=== PATIENT | female | born 1965 | race Caucasian/White ===

== ENCOUNTER 2016-08-22 11:10 | Emergency (ER) | payer MEDICAID, OTHER ==
--- NOTE | 2016-08-22 11:33 | ER Document Report ---
ED Medical Screen (RME) - General Chief Complaint: Cough Stated Complaint: COUGH Mode of Arrival: Ambulatory Information source: Patient Notes: 51 y/o F presents to ED c/o cough and congestion over the last several weeks. Reports associated intermittent dizziness with coughing bouts. I have greeted and performed a rapid initial assessment of this patient. A comprehensive ED assessment and evaluation of the patient, analysis of test results and completion of the medical decision making process will be conducted by additional ED providers. TRAVEL OUTSIDE OF THE [place] IN LAST 30 DAYS: No - Related Data Allergies/Adverse Reactions: codeine Allergy (Verified 08/22/16 11:29) Past Medical History - Social History Chew tobacco use (# tins/day): No Frequency of alcohol use: None Drug Abuse: None Renal/ Medical History: Denies: Hx Peritoneal Dialysis Physical Exam - Vital signs Vitals: Temp Pulse Resp BP Pulse Ox 97.9 F 98 16 151/85 H 99 08/22/16 11:25 08/22/16 11:25 08/22/16 11:25 08/22/16 11:25 08/22/16 11:25 - General General appearance: Appears well, Alert In distress: None - Respiratory Respiratory status: No respiratory distress Course - Vital Signs Vital signs: Temp Pulse Resp BP Pulse Ox 97.9 F 98 16 151/85 H 99 08/22/16 11:25 08/22/16 11:25 08/22/16 11:25 08/22/16 11:25 08/22/16 11:25
[2016-08-22 12:37] VITALS: BP 139/78
--- NOTE | 2016-08-22 12:39 | ER Document Report ---
ED General - General Chief Complaint: Cough Stated Complaint: COUGH Mode of Arrival: Ambulatory TRAVEL OUTSIDE OF THE [place] IN LAST 30 DAYS: No - HPI Patient complains to provider of: cough sinus congestion Notes: Patient with cough sinus congestion ongoing for the last 3 weeks. Denies any recent travel denies any recent antibiotics. Patient states [id number] medications are not working anymore. Patient does not smoke. Denies any sick contacts patient denies fevers chills nausea vomiting. States most the pressures maxillary sinuses - Related Data Allergies/Adverse Reactions: codeine Allergy (Verified 08/22/16 11:29) Past Medical History - General Information source: Patient - Social History Smoking Status: Never Smoker Chew tobacco use (# tins/day): No Frequency of alcohol use: None Drug Abuse: None Family History: Reviewed & Not Pertinent Patient has suicidal ideation: No Patient has homicidal ideation: No Renal/ Medical History: Denies: Hx Peritoneal Dialysis Review of Systems - Review of Systems Constitutional: No symptoms reported EENT: Sinus pressure, Sinus discharge Cardiovascular: No symptoms reported Respiratory: Cough Gastrointestinal: No symptoms reported Genitourinary: No symptoms reported Female Genitourinary: No symptoms reported Musculoskeletal: No symptoms reported Skin: No symptoms reported Hematologic/Lymphatic: No symptoms reported Neurological/Psychological: No symptoms reported -: Yes All other systems reviewed and negative Physical Exam - Vital signs Vitals: Temp Pulse Resp BP Pulse Ox 97.9 F 98 16 151/85 H 99 08/22/16 11:25 08/22/16 11:25 08/22/16 11:25 08/22/16 11:25 08/22/16 11:25 Interpretation: Normal - General General appearance: Appears well, Alert - HEENT Head: Normocephalic, Atraumatic Eyes: Normal Conjunctiva: Normal Cornea: Normal Extraocular movements intact: Yes Eyelashes: Normal Pupils: PERRL Anterior chamber: Normal Ears: Normal External canal: Normal Tympanic membrane: Normal Sinus: Normal Nasal: Normal Mouth/Lips: Normal Pharynx: Normal Neck: Normal - Respiratory Respiratory status: No respiratory distress Chest status: Nontender Breath sounds: Normal Chest palpation: Normal - Cardiovascular Rhythm: Regular Heart sounds: Normal auscultation Murmur: No - Abdominal Inspection: Normal Distension: No distension Bowel sounds: Normal Tenderness: Nontender Organomegaly: No organomegaly - Back Back: Normal, Nontender - Extremities General upper extremity: Normal inspection, Nontender, Normal color, Normal ROM , Normal temperature General lower extremity: Normal inspection, Nontender, Normal color, Normal ROM , Normal temperature, Normal weight bearing. No: Lizzette's sign - Neurological Neuro grossly intact: Yes Cognition: Normal Orientation: AAOx4 [place]anna Coma Scale Eye Opening: Spontaneous [place] Coma Scale Verbal: Oriented [place] Coma Scale Motor: Obeys Commands [place] Coma Scale Total: 15 Speech: Normal Motor strength normal: LUE, RUE, LLE, RLE Sensory: Normal - Psychological Associated symptoms: Normal affect, Normal mood - Skin Skin Temperature: Warm Skin Moisture: Dry Skin Color: Normal Course - Re-evaluation Re-evalutation: 08/22/16 15:33 Patient symptoms are consistent with sinusitis. Examination reveals no critical etiology. Patient will be treated symptomatically. Patient will be discharged home. - Vital Signs Vital signs: Temp Pulse Resp BP Pulse Ox 98.8 F 89 16 139/78 H 97 08/22/16 12:35 08/22/16 12:35 08/22/16 12:35 08/22/16 12:35 08/22/16 12:35 Discharge - Discharge Clinical Impression: Sinus congestion, Viral URI with cough Condition: Good Disposition: HOME, SELF-CARE Instructions: Upper Respiratory Illness ([facility]) Additional Instructions: Examination today is consistent with sinus congestion you caused by a viral etiology or the weather. We will treat you with her the and steroids. Please take medications as prescribed follow-up with your primary care physician or physicians provided. Return to the ER symptoms worsen. Please make sure to stay well hydrated drink water He may still experience mild dizziness with coughing spells. To help him with his please make sure that you stay well-hydrated drinking plenty water Prescriptions: Desloratadine/Pseudoephedrine [Clarinex-D 12 Hour Tablet] 1 each PO BID #30 tbmp.12hr Prednisone [Deltasone 20 mg Tablet] 2 tab PO DAILY 5 Days
== END 2016-08-22 12:39 | disposition home or self-care (01) ==
LOC: ER 11:10
DX: J06.9 Acute upper respiratory infection, unspecified (principal); B97.89 Other viral agents as the cause of diseases classified elsewhere; R05 Cough; R09.81 Nasal congestion
CPT/HCPCS: 71020; 99283

== ENCOUNTER 2018-11-30 09:21 | Emergency (ER) | payer SELFPAY ==
[2018-11-30] MEDS ORDERED: ASPIRIN 81 MG TABLET, CHEWABLE PO ONE (09:51)
--- NOTE | 2018-11-30 09:52 | ER Document Report ---
ED Medical Screen (RME) - General Chief Complaint: Chest Pain Stated Complaint: SORE THROAT Time Seen by Provider: 11/30/18 09:44 Mode of Arrival: Ambulatory Information source: Patient Notes: Patient presents with a 3-day history of sore throat congestion and voice hoarseness. Patient states that she developed chest discomfort last night that has just been a constant ache. I have greeted and performed a rapid initial assessment of this patient. A comprehensive ED assessment and evaluation of the patient, analysis of test results and completion of the medical decision making process will be conducted by additional ED providers. TRAVEL OUTSIDE OF THE [place] IN LAST 30 DAYS: No - Related Data Allergies/Adverse Reactions: codeine Allergy (Verified 11/30/18 09:24) Past Medical History Renal/ Medical History: Denies: Hx Peritoneal Dialysis Physical Exam - Vital signs Vitals: Temp Pulse Resp BP Pulse Ox 98 F 90 18 148/89 H 97 11/30/18 09:31 11/30/18 09:31 11/30/18 09:31 11/30/18 09:31 11/30/18 09:31 - Respiratory Respiratory status: No respiratory distress Chest status: Tender Breath sounds: Nonproductive cough Chest palpation: No: Tender Course - Vital Signs Vital signs: Temp Pulse Resp BP Pulse Ox 98 F 90 18 148/89 H 97 11/30/18 09:31 11/30/18 09:31 11/30/18 09:31 11/30/18 09:31 11/30/18 09:31
[2018-11-30] MEDS ORDERED: IBUPROFEN 600 MG TABLET PO ONE (10:34)
[2018-11-30] MEDS ORDERED: RINGERS SOLUTION,LACTATED 1,000 ML IV ONE (10:43)
[2018-11-30 11:34] LABS: ABSOLUTE BASOPHILS # (AUTO) 0.1 10^3/uL (0.0-0.2); ABSOLUTE EOSINOPHILS # (AUTO) 0.1 10^3/uL (0.0-0.6); ABSOLUTE LYMPHOCYTES (AUTO) 1.9 10^3/uL (0.5-4.7); ABSOLUTE MONOCYTES (AUTO) 0.6 10^3/uL (0.1-1.4); ABSOLUTE NEUT (AUTO) 8.8 10^3/uL (1.7-8.2); BASOPHILS % (AUTO) 0.5 % (0-2); EOSINOPHILS % (AUTO) 0.9 % (0-6); HEMATOCRIT 45.2 % (36.0-47.0); HEMOGLOBIN 15.2 g/dL (12.0-15.5); LYMPHOCYTES % (AUTO) 16.6 % (13-45); MEAN CORPUSCULAR HEMOGLOBIN 28.1 pg (27.0-33.4); MEAN CORPUSCULAR HGB CONC 33.7 g/dL (32.0-36.0); MEAN CORPUSCULAR VOLUME 83 fl (80-97); MONOCYTES % (AUTO) 5.4 % (3-13); PLATELET COUNT 260 10^3/uL (150-450); RED BLOOD COUNT 5.42 10^6/uL (3.72-5.28); RED CELL DISTRIBUTION WIDTH 13.3 % (11.5-14.0); SEGMENTED NEUTROPHILS % (AUTO) 76.6 % (42-78); TOTAL CELLS COUNTED % (AUTO) 100 %; WHITE BLOOD COUNT 11.5 10^3/uL (4.0-10.5)
[2018-11-30 11:37] LABS: APPEARANCE,URINE CLEAR; BILIRUBIN,URINE NEGATIVE (NEGATIVE); COLOR,URINE YELLOW; GLUCOSE, URINE >=500 mg/dL (NEGATIVE); KETONES,URINE NEGATIVE (NEGATIVE); LEUKOCYTE ESTERASE,URINE NEGATIVE (NEGATIVE); NITRITE,URINE NEGATIVE (NEGATIVE); PROTEIN,URINE NEGATIVE (NEGATIVE); URINE SPECIFIC GRAVITY 1.032; UROBILINOGEN,URINE NEGATIVE mg/dL (<2.0)
--- NOTE | 2018-11-30 11:38 | ER Document Report ---
ED General - General Chief Complaint: Sore Throat Stated Complaint: SORE THROAT Time Seen by Provider: 11/30/18 09:44 Primary Care Provider: JAYNA DOAN MD [ACTIVE STAFF] - Follow up as needed Mode of Arrival: Ambulatory Notes: Patient is a 53-year-old female presents to the emergency department for 3 days of generalized cough, congestion. Patient states she is also losing her voice and feels as though it is very hoarse. Patient is complaining of a generalized sore throat. Patient states the center of her chest does hurt only when she coughs. Patient's denying any chest pain currently or any shortness of breath. Patient is denying any abdominal pain, nausea, vomiting, headache, weakness, dizziness. Patient states she does have a medical history of high blood sugars. States in the past 1 time her sugar will be elevated in the next time it is taking it will be normal. Patient states she was never placed on medications or officially diagnosed with diabetes. Allergies: Codeine Surgical history: Tonsillectomy TRAVEL OUTSIDE OF THE [place] IN LAST 30 DAYS: No - Related Data Allergies/Adverse Reactions: codeine Allergy (Verified 11/30/18 09:24) Past Medical History - General Information source: Patient - Social History Smoking Status: Former Smoker Frequency of alcohol use: None Drug Abuse: None Family History: Reviewed & Not Pertinent Patient has suicidal ideation: No Patient has homicidal ideation: No Endocrine Medical History: Comment Only: Hx Diabetes Mellitus Type 2 - not officially diagnosed Renal/ Medical History: Denies: Hx Peritoneal Dialysis GI Medical History: Reports: Hx Ulcer Past Surgical History: Reports: Hx Section - x2, Hx Tonsillectomy - and adenoids Review of Systems - Review of Systems Constitutional: denies: Fever EENT: See HPI Cardiovascular: See HPI Respiratory: See HPI Gastrointestinal: See HPI Genitourinary: No symptoms reported Female Genitourinary: No symptoms reported Musculoskeletal: No symptoms reported Skin: No symptoms reported Hematologic/Lymphatic: No symptoms reported Neurological/Psychological: No symptoms reported Physical Exam - Vital signs Vitals: Temp Pulse Resp BP Pulse Ox 98 F 90 18 148/89 H 97 11/30/18 09:31 11/30/18 09:31 11/30/18 09:31 11/30/18 09:31 11/30/18 09:31 - Notes Notes: GENERAL: Alert, interacts well. No acute distress. HEAD: Normocephalic, atraumatic. No frontal or maxillary sinus tenderness noted EYES: Pupils equal, round, and reactive to light. Extraocular movements intact. ENT: Oral mucosa moist, tongue midline. Nares patent, TM's intact, nonerythematous, nonbulging bilaterally. Pharynx minorly erythematous, no palat al petechiae noted NECK: Full range of motion. Supple. Trachea midline. No lymphadenopathy appreciated LUNGS: Clear to auscultation bilaterally, no wheezes, rales, or rhonchi. No respiratory distress. HEART: Regular rate and rhythm. No murmur ABDOMEN: Soft, non-tender. Non-distended. Bowel sounds present in all 4 quadrants. EXTREMITIES: Moves all 4 extremities spontaneously. No edema, normal radial and dorsalis pedis pulses bilaterally. No cyanosis. BACK: no cervical, thoracic, lumbar midline tenderness. No saddle anesthesia, normal distal neurovascular exam. NEUROLOGICAL: Alert and oriented x3. Normal speech. cranial nerves II through XII grossly intact. PSYCH: Normal affect, normal mood. SKIN: Warm, dry, normal turgor. No rashes or lesions noted. Course - Re-evaluation Re-evalutation: Patient's labs initially show a blood sugar of 384, it is currently downtrending. Patient's hemoglobin A1c is 8.9. Patient's VBG is within normal limits, no electrolyte abnormalities, patient's anion gap is within normal limits. Patient's labs do show slight leukocytosis of 11.5. No signs of urinary tract infections or ketones in her urine. Patient's rapid strep test was negative. I have given the patient fluid resuscitation in the emergency department As well as a first dose of metformin. I discussed with her that she does currently have diabetes. I have discussed the importance of taking her metformin as prescribed and following up with her primary care provider in the next 24 to 48 hours. Patient voices understanding and is stable for discharge. - Vital Signs Vital signs: Temp Pulse Resp BP Pulse Ox 98 F 90 18 148/89 H 97 11/30/18 09:31 11/30/18 09:31 11/30/18 09:31 11/30/18 09:31 11/30/18 09:31 - Laboratory Result Diagrams: 11/30/18 11:12 11/30/18 11:12 Laboratory results interpreted by me: 11/30/18 11/30/18 11/30/18 10:32 11:12 11:12 WBC 11.5 H RBC 5.42 H Absolute Neutrophils 8.8 H Creatinine 0.39 L Glucose 326 H POC Glucose 384 H Hemoglobin A1c % AST 12 L Alkaline Phosphatase 140 H Urine Glucose (UA) Urine Blood 11/30/18 11/30/18 11:12 11:12 WBC RBC Absolute Neutrophils Creatinine Glucose POC Glucose Hemoglobin A1c % 8.9 H AST Alkaline Phosphatase Urine Glucose (UA) >=500 H Urine Blood LARGE H Discharge - Discharge Clinical Impression: Laryngitis Diabetes Qualifiers: Diabetes mellitus type: type 2 Diabetes mellitus mcfp insulin use: unspecified mcfp insulin use status Diabetes mellitus complication status: with unspecified complications Qualified Code(s): E11.8 - Type 2 diabetes mellitus with unspecified complications Upper respiratory infection Qualifiers: URI type: unspecified viral URI Qualified Code(s): J06.9 - Acute upper respiratory infection, unspecified Condition: Stable Disposition: HOME, SELF-CARE Instructions: Diabetes ([facility]), Laryngitis ([facility]), Sore Throat ([facility]), Upper Respiratory Illness ([facility]) Additional Instructions: You have been seen and treated in the emergency department for an upper respiratory infection. Upper respiratory infections are typically caused by viruses and they do not respond to antibiotics. Laryngitis sometimes response to steroids as it helps with the inflammation but because if sugars are still high I am unable to give you a prescription for steroids. Please make sure you are taking [id number] Tylenol alternated with Motrin and staying well- hydrated. Please also try [id number] Nasonex or Flonase. Your blood sugars are elevated at today's visit. You do have diabetes. Please make sure you take your prescription metformin as prescribed. Please also make sure you follow-up with your primary care provider in the next 24 to 48 hours. Please return to the emergency room for any concerns. Prescriptions: Metformin HCl 500 mg PO BID #60 tablet Referrals: JAYNA DOAN MD [ACTIVE STAFF] - Follow up as needed
[2018-11-30 11:47] LABS: ALANINE AMINOTRANSFERASE 9 U/L (9-52); ALBUMIN 4.4 g/dL (3.5-5.0); ALKALINE PHOSPHATASE 140 U/L (38-126); ANION GAP 13 (5-19); ASPARTATE AMINO TRANSFERASE 12 U/L (14-36); BILIRUBIN,DIRECT 0.3 mg/dL (0.0-0.4); BILIRUBIN,TOTAL 0.6 mg/dL (0.2-1.3); BLOOD UREA NITROGEN 15 mg/dL (7-20); CALCIUM 10.2 mg/dL (8.4-10.2); CARBON DIOXIDE 26 mmol/L (22-30); CHLORIDE 100 mmol/L (98-107); GLUCOSE 326 mg/dL (75-110); POTASSIUM 4.4 mmol/L (3.6-5.0); SODIUM 139.3 mmol/L (137-145); TOTAL PROTEIN 7.8 g/dL (6.3-8.2)
[2018-11-30 12:19] LABS: VENOUS BLOOD BASE EXCESS 1.2 mmol/L; VENOUS BLOOD HCO3 25.9 mmol/L (20-32); VENOUS BLOOD PCO2 41.1 mmHg (35-63); VENOUS BLOOD PH 7.42 (7.30-7.42)
[2018-11-30] MEDS ORDERED: METFORMIN HCL 500 MG TABLET PO ONE (12:58)
[2018-11-30 13:29] VITALS: BP 142/88
== END 2018-11-30 13:32 | disposition home or self-care (01) ==
LOC: ER 09:21
DX: J04.0 Acute laryngitis (principal); J06.9 Acute upper respiratory infection, unspecified; E11.8 Type 2 diabetes mellitus with unspecified complications; Z88.6 Allergy status to analgesic agent; Z79.84 Long term (current) use of oral hypoglycemic drugs
CPT/HCPCS: 99283; 96360; 96361; 36415; 87070; 87880; 82962; 85025; 87077; 80053; 81001; 83036; 82803; J7120

== ENCOUNTER 2019-01-27 10:18 | Emergency (ER) | payer SELFPAY ==
[2019-01-27] MEDS ORDERED: ASPIRIN 81 MG TABLET, CHEWABLE PO ONE (10:51)
--- NOTE | 2019-01-27 10:56 | ER Document Report ---
ED Medical Screen (RME) - General Chief Complaint: Chest Pain Stated Complaint: HEART PALPITATIONS Time Seen by Provider: 01/27/19 10:51 Notes: Patient is a 53-year-old female with diabetes presents to the emergency department with a fluttering feeling in her chest. States this is intermittent for last couple of days. Patient states she was recently diagnosed with diabetes prescribed metformin. States she has not been able to fill her me tformin so she has not been taking any medications. Patient states her chest at this point time feels tight. GENERAL: Alert, interacts well. No acute distress. LUNGS: Clear to auscultation bilaterally, no wheezes, rales, or rhonchi. No respiratory distress. HEART: Regular rate and rhythm. No murmur I have greeted and performed a rapid initial assessment of this patient. A comprehensive ED assessment and evaluation of the patient, analysis of test results and completion of the medical decision making process will be conducted by additional ED providers. I have specifically instructed the patient or family members with the patient to immediately return to any nursing staff should anything change in the patient's condition or with their chief complaint. This medical record was dictated with voice recognizing software. There may be grammatical, syntax errors that are unintended. TRAVEL OUTSIDE OF THE [place] IN LAST 30 DAYS: No - Related Data Allergies/Adverse Reactions: codeine Allergy (Verified 11/30/18 09:24) Past Medical History - Social History Chew tobacco use (# tins/day): No Frequency of alcohol use: Occasional Drug Abuse: None Endocrine Medical History: Reports: Hx Diabetes Mellitus Type 2 - not officially diagnosed NO MEDS Renal/ Medical History: Denies: Hx Peritoneal Dialysis GI Medical History: Reports: Hx Gastroesophageal Reflux Disease, Hx Ulcer Past Surgical History: Reports: Hx Section - x2, Hx Orthopedic Surgery - TUMOR FROM RIGHT ARM, BACK, Hx Tonsillectomy - and adenoids Physical Exam - Vital signs Vitals: Pulse Resp BP Pulse Ox 88 16 138/82 H 93 01/27/19 10:01/27/19 10:01/27/19 10:01/27/19 10:27 Course - Vital Signs Vital signs: Temp Pulse Resp BP Pulse Ox 88 16 138/82 H 93 01/27/19 10:01/27/19 10:01/27/19 10:01/27/19 10:27
[2019-01-27 11:19] LABS: ABSOLUTE BASOPHILS # (AUTO) 0.1 10^3/uL (0.0-0.2); ABSOLUTE EOSINOPHILS # (AUTO) 0.1 10^3/uL (0.0-0.6); ABSOLUTE LYMPHOCYTES (AUTO) 2.3 10^3/uL (0.5-4.7); ABSOLUTE MONOCYTES (AUTO) 0.4 10^3/uL (0.1-1.4); ABSOLUTE NEUT (AUTO) 4.7 10^3/uL (1.7-8.2); BASOPHILS % (AUTO) 0.9 % (0-2); HEMATOCRIT 45.8 % (36.0-47.0); HEMOGLOBIN 15.9 g/dL (12.0-15.5); LYMPHOCYTES % (AUTO) 30.5 % (13-45); MEAN CORPUSCULAR HEMOGLOBIN 28.8 pg (27.0-33.4); MEAN CORPUSCULAR HGB CONC 34.7 g/dL (32.0-36.0); MEAN CORPUSCULAR VOLUME 83 fl (80-97); MONOCYTES % (AUTO) 5.1 % (3-13); PLATELET COUNT 237 10^3/uL (150-450); RED BLOOD COUNT 5.51 10^6/uL (3.72-5.28); RED CELL DISTRIBUTION WIDTH 13.3 % (11.5-14.0); SEGMENTED NEUTROPHILS % (AUTO) 61.5 % (42-78); TOTAL CELLS COUNTED % (AUTO) 100 %; WHITE BLOOD COUNT 7.7 10^3/uL (4.0-10.5)
--- NOTE | 2019-01-27 11:31 | ER Document Report ---
ED General - General Chief Complaint: Chest Pain Stated Complaint: HEART PALPITATIONS Time Seen by Provider: 01/27/19 10:51 TRAVEL OUTSIDE OF THE [place] IN LAST 30 DAYS: No - HPI Notes: Patient is a 53-year-old female who presents emergency department for evaluation of palpitations. She states that they have been ongoing for the last several days. She states that nothing seems to bring them about, nothing seems to make them go away. She denies any associated chest pain, shortness of breath, nausea, diaphoresis, near syncope. She states she has had some intermittent chest tightness, but states that Thursday sensation for her. She actually had some when she presented, but states that she belched and it resolved. She does have a history of acid reflux, and again this is not an abnormal problem for her. She was recently diagnosed with diabetes, after her visit here in the emergency department. She was written a prescription for metformin, which she has not yet filled. She does move to the area, does not yet have a primary care provider. - Related Data Allergies/Adverse Reactions: codeine Allergy (Verified 11/30/18 09:24) Past Medical History - General Information source: Patient - Social History Smoking Status: Never Smoker Chew tobacco use (# tins/day): No Frequency of alcohol use: Occasional Drug Abuse: None Family History: Reviewed & Not Pertinent Patient has suicidal ideation: No Patient has homicidal ideation: No Endocrine Medical History: Reports: Hx Diabetes Mellitus Type 2 - not officially diagnosed NO MEDS Renal/ Medical History: Denies: Hx Peritoneal Dialysis GI Medical History: Reports: Hx Gastroesophageal Reflux Disease, Hx Ulcer Past Surgical History: Reports: Hx Section - x2, Hx Orthopedic Surgery - TUMOR FROM RIGHT ARM, BACK, Hx Tonsillectomy - and adenoids Review of Systems - Review of Systems Constitutional: No symptoms reported EENT: No symptoms reported Cardiovascular: See HPI Respiratory: No symptoms reported Gastrointestinal: No symptoms reported Genitourinary: No symptoms reported Female Genitourinary: No symptoms reported Musculoskeletal: No symptoms reported Skin: No symptoms reported Neurological/Psychological: No symptoms reported Physical Exam - Vital signs Vitals: Pulse Resp BP Pulse Ox 88 16 138/82 H 93 01/27/19 10:27 01/27/19 10:27 01/27/19 10:27 01/27/19 10:27 - Notes Notes: Vital signs reviewed, please refer to chart. Head is normocephalic, atraumatic. Pupils equal round, reactive to light. Neck is supple without meningismus. Heart is regular rate and rhythm. Lungs are clear to auscultation bilaterally. Abdomen is soft, nontender, normoactive bowel sounds throughout. Extremities without cyanosis, clubbing. Posterior calves are nontender. Peripheral pulses are equal. Skin is warm and dry. Patient is awake, alert, neurological exam is nonfocal. Course - Re-evaluation Re-evalutation: 01/27/19 13:23 Patient presents emergency department for evaluation. She is reminded that she needs to start her metformin. The comp occasions of untreated diabetes is explained in great detail. We did discuss dietary and lifestyle changes for better glucose control. She voiced understanding. Patient was placed on a mon itor, laboratory investigations were obtained. Monitor here did not reveal any signs of ectopy. Patient's heart rate stayed in the 70s and 80s throughout the course of her stay. Laboratory investigations showed findings consistent with mild dehydration. She is given IV fluids. No clear etiology of her palpitations was found, and the patient did not really suffer from any while here. We will refer her on to primary care. She is currently awaiting insurance as she just moved from [place]. [facility] She is to follow-up with primary care, perhaps seek out cardiology referral. She is to return to the emergency department with worsening or new concerning symptoms of any sort. - Vital Signs Vital signs: Temp Pulse Resp BP Pulse Ox 88 16 138/82 H 93 01/27/19 10:27 01/27/19 10:27 01/27/19 10:27 01/27/19 10:27 - Laboratory Result Diagrams: 01/27/19 11:00 01/27/19 11:00 Laboratory results interpreted by me: 01/27/19 01/27/19 11:00 11:00 RBC 5.51 H Hgb 15.9 H Creatinine 0.50 L Glucose 344 H Alkaline Phosphatase 128 H - Diagnostic Test Radiology reviewed: Reports reviewed Radiology results interpreted by me: 01/27/19 13:24 Chest X-Ray 01/27/19 10:54 IMPRESSION: NO ACUTE RADIOGRAPHIC FINDING IN THE CHEST. - EKG Interpretation by Me Additional EKG results interpreted by me: 01/27/19 11:31 Sinus mechanism with a rate of 85 bpm. Normal axis and intervals. No acute ST changes concerning for ischemia or infarction. No old studies available for comparison. Discharge - Discharge Clinical Impression: Hyperglycemia, Palpitations Condition: Stable Disposition: HOME, SELF-CARE Instructions: Palpitations (Irregular or Rapid Heartrate) ([facility]), Hyperglycemia ([facility]) Additional Instructions: Rest and stay well-hydrated. You need to start your metformin as directed. Dietary changes and lifestyle adjustments as discussed. Follow-up with primary care next week. You may require referral onto cardiology. Return to the emergency department with worsening or new concerning symptoms of any sort.
--- NOTE | 2019-01-27 11:36 | RADIOLOGY REPORT (SQ) ---
EXAM DESCRIPTION: CHEST SINGLE VIEW COMPLETED DATE/TIME: 01/27/2019 11:15 am REASON FOR STUDY: CP COMPARISON: 08/22/2016. EXAM PARAMETERS: NUMBER OF VIEWS: One view. TECHNIQUE: Single frontal radiographic view of the chest acquired. RADIATION DOSE: NA LIMITATIONS: None. FINDINGS: LUNGS AND PLEURA: No opacities, masses or pneumothorax. No pleural effusion. MEDIASTINUM AND HILAR STRUCTURES: No masses. Contour normal. HEART AND VASCULAR STRUCTURES: Heart normal in size. Normal vasculature. BONES: No acute findings. HARDWARE: None in the chest. OTHER: No other significant finding. IMPRESSION: NO ACUTE RADIOGRAPHIC FINDING IN THE CHEST. TECHNICAL DOCUMENTATION: JOB ID: [id number] [employer]- All Rights Reserved Reading location - IP/workstation name: [email or web address]
[2019-01-27 11:40] LABS: ALANINE AMINOTRANSFERASE 13 U/L (9-52); ALBUMIN 4.8 g/dL (3.5-5.0); ALKALINE PHOSPHATASE 128 U/L (38-126); ANION GAP 11 (5-19); ASPARTATE AMINO TRANSFERASE 15 U/L (14-36); BILIRUBIN,DIRECT 0.3 mg/dL (0.0-0.4); BILIRUBIN,TOTAL 0.5 mg/dL (0.2-1.3); BLOOD UREA NITROGEN 14 mg/dL (7-20); CALCIUM 10.1 mg/dL (8.4-10.2); CARBON DIOXIDE 29 mmol/L (22-30); CHLORIDE 99 mmol/L (98-107); CREATINE KINASE 41 U/L (30-135); GLUCOSE 344 mg/dL (75-110); POTASSIUM 4.3 mmol/L (3.6-5.0); TOTAL PROTEIN 8.2 g/dL (6.3-8.2)
[2019-01-27 11:52] LABS: CREATINE KINASE MB 0.71 ng/mL (<4.55); TROPONIN I < 0.012 ng/mL
[2019-01-27] MEDS ORDERED: NORMAL SALINE 1000 ML 1,000 ML IV ONE (13:00)
[2019-01-27 13:59] VITALS: BP 148/88
--- NOTE | 2019-01-27 20:33 | EKG REPORT ---
SEVERITY:- NORMAL ECG - SINUS RHYTHM : Confirmed by: Tomás Juares 27-Jan-2019 20:31:52
== END 2019-01-27 13:59 | disposition home or self-care (01) ==
LOC: ER 10:18
DX: R73.9 Hyperglycemia, unspecified (principal); R00.2 Palpitations; R07.9 Chest pain, unspecified; Z88.6 Allergy status to analgesic agent
CPT/HCPCS: 93005; 99285; 96360; 36415; 82553; 82550; 83735; 85025; 80053; 84484; 71045; 93010; J7030

== ENCOUNTER 2019-05-24 09:17 | Emergency (ER) | payer SELFPAY ==
[2019-05-24 09:22] VITALS: BP 136/83
--- NOTE | 2019-05-24 09:58 | ER Document Report ---
HPI - HPI Time Seen by Provider: 05/24/19 09:45 Pain Level: 3 Context: Patient is a 54-year-old female who presents emergency department with a chief complaint of difficulty breathing. Patient states that she started with a cough yesterday. Denies any fevers, body aches, chills, or any other symptoms. Patient states that she is possibly prediabetic but has not had confirmation. - CONSTITUTIONAL Constitutional: DENIES: Fever, Chills - NEURO Neurology: DENIES: Headache - CARDIOVASCULAR Cardiovascular: DENIES: Chest pain - RESPIRATORY Respiratory: REPORTS: Trouble Breathing, Coughing - GASTROINTESTINAL Gastrointestinal: DENIES: Abdominal Pain, Nausea, Patient vomiting, Diarrhea - REPRODUCTIVE LMP: Menopausal Reproductive: DENIES: : - MUSCULOSKELETAL Musculoskeletal: DENIES: Extremity pain - DERM Skin Color: Normal Skin Problems: None Past Medical History - Social History Smoking Status: Former Smoker Chew tobacco use (# tins/day): No Frequency of alcohol use: None Drug Abuse: None Family History: Reviewed & Not Pertinent Patient has suicidal ideation: No Patient has homicidal ideation: No Endocrine Medical History: Reports: Hx Diabetes Mellitus Type 2 - not officially diagnosed NO MEDS Renal/ Medical History: Denies: Hx Peritoneal Dialysis GI Medical History: Reports: Hx Gastroesophageal Reflux Disease, Hx Ulcer Past Surgical History: Reports: Hx Section - x2, Hx Orthopedic Surgery - TUMOR FROM RIGHT ARM, BACK, Hx Tonsillectomy - and adenoids Vertical Provider Document - CONSTITUTIONAL Agree With Documented VS: Yes Exam Limitations: No Limitations General Appearance: No Apparent Distress - INFECTION CONTROL TRAVEL OUTSIDE OF THE [place] IN LAST 30 DAYS: No - HEENT HEENT: Atraumatic, Normocephalic, PERRLA - NECK Neck: Normal Inspection, Supple - RESPIRATORY Respiratory: No Respiratory Distress, Other - Decreased expiratory breath sounds in the right lower lobe - CARDIOVASCULAR Cardiovascular: Regular Rate, Regular Rhythm Pulses: Normal: Radial - MUSCULOSKELETAL/EXTREMETIES Musculoskeletal/Extremeties: FROM - NEURO Level of Consciousness: Awake, Alert, Appropriate Motor/Sensory: No Motor Deficit, No Sensory Deficit - DERM Integumentary: Warm, Dry, No Rash Course - Re-evaluation Re-evalutation: 05/24/19 10:31 Patient's chest x-ray per radiologist is negative for any acute findings. No focal consolidation noted. Patient will be sent home with an albuterol inhaler with a spacer. I instructed the patient on how often to use the inhaler. She will also be prescribed guaifenesin. She will follow-up with [facility] or [facility]. She is in agreement with this plan. Follow- up precautions were given. Verbal discharge instructions were given to the patient. They verbalized understanding. They are stable for discharge. - Vital Signs Vital signs: Temp Pulse Resp BP Pulse Ox 98.2 F 96 18 136/83 H 99 05/24/19 09:21 05/24/19 09:21 05/24/19 09:21 05/24/19 09:21 05/24/19 09:21 Discharge - Discharge Clinical Impression: Productive cough Condition: Stable Disposition: HOME, SELF-CARE Additional Instructions: You were seen today in the emergency department for a cough. Your chest x-ray was normal. You are being provided an inhaler. You can take 1 puff every 4-6 hours as needed. You are also being placed on guaifenesin, medication to help break up the mucus. Please follow-up with 1 of the clinics below. If you have worsening shortness of breath, difficulty breathing, or any other symptoms that are worrisome to you, please return to the emergency department. Prescriptions: Guaifenesin [Mucinex] 1,200 mg PO BID #[id number] Forms: Return to Work Referrals: [facility] [Provider Group] - Follow up as needed [facility] [Provider Group] - Follow up as needed
--- NOTE | 2019-05-24 10:17 | RADIOLOGY REPORT (SQ) ---
EXAM DESCRIPTION: CHEST 2 VIEWS COMPLETED DATE/TIME: 05/24/2019 10:05 am REASON FOR STUDY: cough COMPARISON: 01/27/2019 EXAM PARAMETERS: NUMBER OF VIEWS: two views TECHNIQUE: Digital Frontal and Lateral radiographic views of the chest acquired. RADIATION DOSE: NA LIMITATIONS: none FINDINGS: LUNGS AND PLEURA: No opacities, masses or pneumothorax. No pleural effusion. MEDIASTINUM AND HILAR STRUCTURES: No masses or contour abnormalities. HEART AND VASCULAR STRUCTURES: Heart normal size. No evidence for failure. BONES: No acute findings. HARDWARE: None in the chest. OTHER: No other significant finding. IMPRESSION: No focal consolidation or other evidence of acute cardiopulmonary process. TECHNICAL DOCUMENTATION: JOB ID: [id number] [employer]- All Rights Reserved Reading location - IP/workstation name: [email or web address]
[2019-05-24] MEDS ORDERED: ALBUTEROL SULFATE HFA (90 MCG/PUFF) 200 PUFF/8.5 GM MDI IH ONE (10:25)
== END 2019-05-24 10:50 | disposition home or self-care (01) ==
LOC: ER 09:17
DX: R05 Cough (principal); R06.00 Dyspnea, unspecified; Z87.891 Personal history of nicotine dependence
CPT/HCPCS: 71046; J3490; 99284

== ENCOUNTER 2019-08-20 10:19 | Emergency (ER) | payer BC ==
[2019-08-20 10:26] VITALS: BP 139/89
--- NOTE | 2019-08-20 10:31 | ER Document Report ---
ED Medical Screen (RME) - General Chief Complaint: Numbness Stated Complaint: BODY NUMBNESS Time Seen by Provider: 08/20/19 10:25 Mode of Arrival: Ambulatory Information source: Patient Notes: 54-year-old female presents to ED for complaint of numbness to the right side. She states she has full uses her of her arms legs face does not have any drooping but still feels numb. She states it feels just before when he gets the numbness and tingling when you get numbness. She states it feels like it is asleep when she rubs the hand it seems like it is little better but it comes right back. She states she is concerned because she has high sugar and a high A1c and she would like to get this checked her to find what is going on. She does speak in full sentences. Patient is alert oriented respirations regular nonlabored speaking in full sentences and walks with a even steady gait. I have greeted and performed a rapid initial assessment of this patient. A comprehensive ED assessment and evaluation of the patient, analysis of test results and completion of medical decision making process will be conducted by an additional ED providers. TRAVEL OUTSIDE OF THE [place] IN LAST 30 DAYS: No - Related Data Allergies/Adverse Reactions: codeine Allergy (Verified 08/20/19 10:26) Past Medical History - General Information source: Patient - Social History Cigarette use (# per day): No Frequency of alcohol use: None Drug Abuse: None Occupation: Healthcare agent Lives with: Spouse/Significant other Family history: Reviewed & Not Pertinent - Medical History Medical History: Negative - Past Medical History Cardiac Medical History: Reports: None Pulmonary Medical History: Reports: None Neurological Medical History: Reports: None Endocrine Medical History: Reports: Hx Diabetes Mellitus Type 2 Renal/ Medical History: Reports: None Malignancy Medical History: Reports: None GI Medical History: Reports: Hx Gastroesophageal Reflux Disease, Hx Irritable Bowel, Hx Ulcer Musculoskeltal Medical History: Reports Hx Fibromyalgia, Reports Other - Chronic fatigue Skin Medical History: Reports None Psychiatric Medical History: Reports: Hx Depression Traumatic Medical History: Reports: None Infectious Medical History: Reports: None Past Surgical History: Reports: Hx Adenoidectomy, Hx Section - x2, Hx Orthopedic Surgery - TUMOR FROM RIGHT ARM, BACK herniated disc repair, Hx Tonsillectomy - and adenoids - Immunizations Immunizations up to date: Yes Hx Diphtheria, Pertussis, Tetanus Vaccination: No History of Pneumococcal Vaccine: No History of Influenza Vaccine for 04/2019 - 09/2019 Season: No Physical Exam - Vital signs Vitals: Temp Pulse Resp BP Pulse Ox 97.9 F 104 H 18 139/89 H 99 08/20/19 10:22 08/20/19 10:22 08/20/19 10:08/20/19 10:22 08/20/19 10:22 Course - Vital Signs Vital signs: Temp Pulse Resp BP Pulse Ox 97.9 F 104 H 18 139/89 H 99 08/20/19 10:22 08/20/19 10:22 08/20/19 10:22 08/20/19 10:22 08/20/19 10:22
[2019-08-20 11:04] LABS: ABSOLUTE BASOPHILS # (AUTO) 0.1 10^3/uL (0.0-0.2); ABSOLUTE EOSINOPHILS # (AUTO) 0.1 10^3/uL (0.0-0.6); ABSOLUTE LYMPHOCYTES (AUTO) 2.5 10^3/uL (0.5-4.7); ABSOLUTE MONOCYTES (AUTO) 0.4 10^3/uL (0.1-1.4); ABSOLUTE NEUT (AUTO) 5.7 10^3/uL (1.7-8.2); BASOPHILS % (AUTO) 0.9 % (0-2); HEMATOCRIT 42.5 % (36.0-47.0); HEMOGLOBIN 14.9 g/dL (12.0-15.5); LYMPHOCYTES % (AUTO) 28.1 % (13-45); MEAN CORPUSCULAR HEMOGLOBIN 28.8 pg (27.0-33.4); MEAN CORPUSCULAR HGB CONC 35.1 g/dL (32.0-36.0); MEAN CORPUSCULAR VOLUME 82 fl (80-97); MONOCYTES % (AUTO) 4.5 % (3-13); PLATELET COUNT 234 10^3/uL (150-450); RED BLOOD COUNT 5.17 10^6/uL (3.72-5.28); RED CELL DISTRIBUTION WIDTH 13.2 % (11.5-14.0); SEGMENTED NEUTROPHILS % (AUTO) 65.5 % (42-78); TOTAL CELLS COUNTED % (AUTO) 100 %; WHITE BLOOD COUNT 8.7 10^3/uL (4.0-10.5)
[2019-08-20 11:17] LABS: APPEARANCE,URINE CLEAR; BILIRUBIN,URINE NEGATIVE (NEGATIVE); COLOR,URINE YELLOW; GLUCOSE, URINE >=500 mg/dL (NEGATIVE); KETONES,URINE NEGATIVE (NEGATIVE); PROTEIN,URINE NEGATIVE (NEGATIVE); URINE SPECIFIC GRAVITY 1.007; UROBILINOGEN,URINE NEGATIVE mg/dL (<2.0)
[2019-08-20 11:24] LABS: ALBUMIN 4.1 g/dL (3.5-5.0); ALKALINE PHOSPHATASE 110 U/L (38-126); ANION GAP 10 (5-19); ASPARTATE AMINO TRANSFERASE 14 U/L (14-36); BILIRUBIN,TOTAL 0.4 mg/dL (0.2-1.3); BLOOD UREA NITROGEN 13 mg/dL (7-20); CALCIUM 9.6 mg/dL (8.4-10.2); CARBON DIOXIDE 29 mmol/L (22-30); CHLORIDE 100 mmol/L (98-107); GLUCOSE 272 mg/dL (75-110); POTASSIUM 4.2 mmol/L (3.6-5.0); TOTAL PROTEIN 7.3 g/dL (6.3-8.2)
--- NOTE | 2019-08-20 13:27 | ER Document Report ---
ED General - General Chief Complaint: Numbness Stated Complaint: BODY NUMBNESS Time Seen by Provider: 08/20/19 10:25 Mode of Arrival: Ambulatory Notes: Patient is a 54-year-old female with a history of diabetes who presents emergency department with right arm, face, and leg numbness. Patient states that it comes and goes. States that it got worse yesterday. She is able to move her extremities with no difficulty. Denies any new weakness. Denies any facial droop, change in speech, or any other symptoms. Patient states that she has not been taking her metformin. She was prescribed a few months back, but has never taken it. TRAVEL OUTSIDE OF THE [place] 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 Denies: Hx Peritoneal Dialysis Malignancy Medical History: Reports: None GI Medical History: Reports: Hx Gastroesophageal Reflux Disease, Hx Irritable Bowel, Hx Ulcer Musculoskeletal Medical History: Reports Hx Fibromyalgia, Reports Other - Chronic fatigue Skin Medical History: Reports None Psychiatric Medical History: Reports: Hx Depression Traumatic Medical History: Reports: None Infectious Medical History: Reports: None Past Surgical History: Reports: Hx Adenoidectomy, Hx Section - x2, Hx Orthopedic Surgery - TUMOR FROM RIGHT ARM, BACK herniated disc repair, Hx Tonsillectomy - and adenoids - Immunizations Immunizations up to date: Yes Hx Diphtheria, Pertussis, Tetanus Vaccination: No History of Pneumococcal Vaccine: No Review of Systems - Review of Systems Notes: REVIEW OF SYSTEMS: CONSTITUTIONAL : Denies recent illness. Denies recent unintentional weight loss. Denies fever, chills, or sweats. EENT: Denies eye, ear, throat, or mouth pain, discharge, or symptoms. Denies nasal or sinus congestion. CARDIOVASCULAR: Denies chest pain. RESPIRATORY: Denies shortness of breath, cough, congestion, difficulty breathing, or wheezing. GASTROINTESTINAL: Denies nausea, vomiting, and diarrhea. Denies abdominal pain. Denies constipation. GENITOURINARY: Denies difficulty urinating, burning, blood in urine, urgency or frequency. MUSCULOSKELETAL: Denies neck and back pain. Denies joint pain or swelling. SKIN: Denies rash, itchiness, or lesions HEMATOLOGIC : Denies easy bruising or bleeding. LYMPHATIC: Denies swollen, painful, enlarged glands. NEUROLOGICAL: See HPI. Denies headache. Denies altered mental status. Denies alteration in speech. PSYCHIATRIC: Denies stress, anxiety, alteration in sleep patterns, or depression. All other systems reviewed and negative. Physical Exam - Vital signs Vitals: Temp Pulse Resp BP Pulse Ox 97.9 F 104 H 18 139/89 H 99 08/20/19 10:22 08/20/19 10:22 08/20/19 10:22 08/20/19 10:22 08/20/19 10:22 - Notes Notes: PHYSICAL EXAMINATION: GENERAL: Appears well, healthy, well-nourished, no acute distress. HEAD: Normocephalic, atraumatic. EYES: PERRL, conjunctiva normal, all extraocular movements intact, sclera nonicteric ENT: Moist mucous membranes. NECK: Supple, no noticeable swelling, redness, rash. Normal range of motion. LUNGS: Equal breath sounds bilaterally and clear to auscultation. No wheezes rales or rhonchi. CARDIOVASCULAR: S1-S2, regular rate, regular rhythm. Radial pulses 2+, normal. ABDOMEN: Normoactive bowel sounds. Soft, nontender, no guarding, no rebound tenderness, and no masses palpated. EXTREMITIES: Normal strength and range of motion, no pitting or edema. No cyan osis. NEUROLOGICAL: Moves all extremities upon command. Strength 5/5 in all extremities. PSYCH: Normal mood, normal affect. SKIN: Warm, dry. No rash, lesions, ulcerations noted. Normal skin turgor. Course - Re-evaluation Re-evalutation: 08/20/19 13:29 Patient's hematology is unremarkable. Her chemistries show a glucose of 272. Her hemoglobin A1c is 9.1. The patient reports to me that her blood sugar last week was in the 300s. Patient is supposed to be taking metformin but she is not. Her hemoglobin A1c is 9.0. I have advised her that she needs to take her metformin. She is in agreement with this plan. She will establish a primary care provider and follow-up with them. I have a very low suspicion for a stro ke, or any life-threatening etiology at this time. Follow-up precautions were given. Verbal discharge instructions were given to the patient. They verbalized understanding. They are stable for discharge. - Vital Signs Vital signs: Temp Pulse Resp BP Pulse Ox 97.9 F 104 H 16 139/89 H 99 08/20/19 10:22 08/20/19 11:36 08/20/19 11:36 08/20/19 11:36 08/20/19 11:36 - Laboratory Result Diagrams: 08/20/19 10:48 08/20/19 10:48 Laboratory results interpreted by me: 08/20/19 08/20/19 08/20/19 10:47 10:48 10:48 Creatinine 0.46 L Glucose 272 H POC Glucose 249 H Hemoglobin A1c % 9.0 H Urine Glucose (UA) 08/20/19 10:48 Creatinine Glucose POC Glucose Hemoglobin A1c % Urine Glucose (UA) >=500 H Discharge - Discharge Clinical Impression: Right sided numbness, Elevated hemoglobin A1c Diabetic neuropathy associated with type 2 diabetes mellitus Qualifiers: Diabetes mellitus complication detail: diabetic mononeuropathy Qualified Code(s): E11.41 - Type 2 diabetes mellitus with diabetic mononeuropathy Condition: Stable Disposition: HOME, SELF-CARE Additional Instructions: You were seen today in the emergency department for right-sided face, arm, and leg numbness. Your numbness is due to diabetic neuropathy. This is because your blood sugars are not under control. Please take the metformin you have at home. Please go on your insurance website and establish a primary care provider and follow-up with them in the next 3 to 5 days.
== END 2019-08-20 13:39 | disposition home or self-care (01) ==
LOC: ER 10:19
DX: E11.41 Type 2 diabetes mellitus with diabetic mononeuropathy (principal); T38.3X6A Underdosing of insulin and oral hypoglycemic [antidiabetic] drugs, initial encounter; Z91.14 Patient's other noncompliance with medication regimen; Z88.6 Allergy status to analgesic agent; Z88.5 Allergy status to narcotic agent
CPT/HCPCS: 36415; 80053; 81001; 82962; 83036; 83690; 85025; 99284